=== PATIENT | male | born 1995 | race Caucasian/White ===

== ENCOUNTER 2018-06-08 10:05 | Emergency (ER) | payer OTHER ==
--- NOTE | 2018-06-08 10:34 | EDPHY ---
H & P Time Seen by Provider: 06/08/18 10:34 HPI/ROS: CHIEF COMPLAINT: Low back pain and left forearm pain HISTORY OF PRESENT ILLNESS: Patient is a 22-year-old male here with left forearm pain and low back pain after he fell off a roof this morning while working. He states he fell approximately 8 ft and landed on his left low back and left forearm. He did not hit his head any denies any neck pain or headache. Additionally denies any chest pain or trouble breathing. He was able to ambulate after the incident denies any leg weakness leg numbness, saddle paresthesias or incontinence of bladder or stool. She is not taking any medication and denies any drug or alcohol use currently. ROS As detailed in HPI Smoking Status: Never smoked Physical Exam: General: Alert and oriented. Nontoxic appearing. No acute distress HEENT: Pupils PERRLA. No oral lesions. Cardiopulmonary: Regular rate and rhythm. No lower extremity edema Chest: No chest wall deformity or signs of trauma. Lung sounds clear bilaterally with no increased work of breathing Abdomen: No abdominal tenderness. Bowel sounds in all 4 quadrants. No signs of trauma to the abdomen. Pelvis: Pelvis is stable with no crepitus or tenderness. Skin: [place] warm and dry. No lesions. Muscle skeletal: Moving all 4 extremities. Equal strength in upper extremities and lower extremities. Tenderness to the left distal radius and distal ulna. No open skin lesions or deformity. Neurovascular intact distal to the left wrist. Back: Tenderness diffusely to the low back Neuro: Alert and oriented in her cranial nerves grossly intact Constitutional: Initial Vital Signs Temperature (C) 36.7 C 06/08/18 10:23 Heart Rate 67 06/08/18 10:23 Respiratory Rate 16 06/08/18 10:23 Blood Pressure 139/71 H 06/08/18 10:23 O2 Sat (%) 94 06/08/18 10:23 O2 Delivery Mode Room Air Allergies/Adverse Reactions: No Known Allergies Allergy (Unverified 06/08/18 10:27) Home Medications: Medication Instructions Recorded Hydrocodone/APAP 5/325 [Griffin 1 tab PO Q6H #16 tab 06/08/18 5/325 (*)] Medical Decision Making - Diagnostics Imaging Results: Imaging Impressions Lumbar Spine CT 06/08/18 10:53 Impression: Nondisplaced lateral left sacral fracture. Results called to Louie Olsen at 12:20 PM. General information for patients regarding this examination can be found at [email or web address]. If you have questions or comments about this report, please contact me at (hospital) or [phone] (cell). Forearm X-Ray 06/08/18 10:54 Findings: There are fractures of the distal radius. Carpal bones and remainder of the hand are intact. There is soft tissue swelling of the fingers. Impression : Nothing acute identified. Impression: Distal radial fractures. 2. Left Wrist, 4 views including a navicular view History: Pain post trauma, 8 foot fall Findings: There is a transverse fracture through the distal radial epiphysis. A vertical fracture undercuts the dorsal lateral 15% of the distal radial articular surface and is discrepant by approximately 4.5 mm. There is a nondisplaced ulnar styloid process avulsion. The carpal bones are normally aligned. The navicular bone is intact. Impression: Complex distal radial fracture with an intra-articular component involving the dorsal lateral surface, but without dorsal angulation. 3. Left Forearm, 2 views History: Pain post 8 foot fall Findings: The distal radial and ulnar fractures are visualized. The more proximal radius and ulna are normal. The elbow joint is grossly normally aligned. Impression: Distal radial and ulnar fractures. Hand X-Ray 06/08/18 10:55 Findings: There are fractures of the distal radius. Carpal bones and remainder of the hand are intact. There is soft tissue swelling of the fingers. Impression : Nothing acute identified. Impression: Distal radial fractures. 2. Left Wrist, 4 views including a navicular view History: Pain post trauma, 8 foot fall Findings: There is a transverse fracture through the distal radial epiphysis. A vertical fracture undercuts the dorsal lateral 15% of the distal radial articular surface and is discrepant by approximately 4.5 mm. There is a nondisplaced ulnar styloid process avulsion. The carpal bones are normally aligned. The navicular bone is intact. Impression: Complex distal radial fracture with an intra-articular component involving the dorsal lateral surface, but without dorsal angulation. 3. Left Forearm, 2 views History: Pain post 8 foot fall Findings: The distal radial and ulnar fractures are visualized. The more proximal radius and ulna are normal. The elbow joint is grossly normally aligned. Impression: Distal radial and ulnar fractures. Wrist X-Ray 06/08/18 11:16 Findings: There are fractures of the distal radius. Carpal bones and remainder of the hand are intact. There is soft tissue swelling of the fingers. Impression : Nothing acute identified. Impression: Distal radial fractures. 2. Left Wrist, 4 views including a navicular view History: Pain post trauma, 8 foot fall Findings: There is a transverse fracture through the distal radial epiphysis. A vertical fracture undercuts the dorsal lateral 15% of the distal radial articular surface and is discrepant by approximately 4.5 mm. There is a nondisplaced ulnar styloid process avulsion. The carpal bones are normally aligned. The navicular bone is intact. Impression: Complex distal radial fracture with an intra-articular component involving the dorsal lateral surface, but without dorsal angulation. 3. Left Forearm, 2 views History: Pain post 8 foot fall Findings: The distal radial and ulnar fractures are visualized. The more proximal radius and ulna are normal. The elbow joint is grossly normally aligned. Impression: Distal radial and ulnar fractures. ED Course/Re-evaluation: 22-year-old male here with fall from 8 ft. GCS of 15. States he speaking in full sentences and appears comfortable. Has tenderness without deformity to the left wrist and is found to have distal radius and distal ulna fracture. He is ambulatory in the ER. CT scan of his lumbar spine shows nondisplaced left sacral fracture. I discussed the case with Dr. Wagner on-call for Neurosurgery who recommends with follow-up with Orthopedics though there is nothing to do emergently of them pain control unless he has any neurologic deficits. Patient is ambulatory and has no saddle paresthesias, leg weakness, incontinence. We did discuss indications for return to the ER. He was given orthopedic follow- up. Differential Diagnosis: Cauda equina, compartment syndrome, compression fracture, - Data Points Medications Given: Discontinued Medications Hydrocodone Bitart/Acetaminophen (Griffin 10/325) 1 tab PO EDNOW ONE Stop: 06/08/18 10:58 Last Admin: 06/08/18 11:04 Dose: 1 tab Departure - Departure Disposition: Home, Routine, Self-Care Clinical Impression: Distal radius fracture, left, Distal end of ulna fracture, closed, Sacral fracture, closed Condition: Good Instructions: Hydrocodone/Acetaminophen (By mouth), Wrist Fracture in Children (ED), Sacral Fracture (ED) Additional Instructions: He need follow-up with Orthopedics within the next 3-5 days. Please call the with [facility] Sunday for follow-up. Take pain medication as needed. Return to ER for trouble urinating, numbness or tingling in her legs, bladder or bowel incontinence. El necesita un seguimiento con el Ortopedico en los siguientes 3-5 judd. Por favor llame el para un seguimiento. [place] medicamento para el dolor. Regrese al Departamento de Emergencias si tiene dificultad al orinar, adormecimiento u hormigueo en las piernas, incontinencia de la vejiga o intestinos. Referrals: NONE *PRIMARY CARE P,. [Primary Care Provider] - As per Instructions Devyn Willett MD [Medical Doctor] - As per Instructions Prescriptions: Hydrocodone/APAP 5/325 [Griffin 5/325 (*)] 1 tab PO Q6H #16 tab Print Language: Upper Sorbian
[2018-06-08] MEDS ORDERED: HYDROCODONE/APAP 10/325 TAB PO ONE (10:57)
[2018-06-08 13:18] VITALS: BP 145/78
== END 2018-06-08 13:19 | disposition home or self-care (01) ==
PROC: 2W3FX1Z Immobilization of Left Hand using Splint (ICD-10-PCS; principal; 2018-06-08)
DX: S52.572A Other intraarticular fracture of lower end of left radius, initial encounter for closed fracture (principal); S52.615A Nondisplaced fracture of left ulna styloid process, initial encounter for closed fracture; S32.10XA Unspecified fracture of sacrum, initial encounter for closed fracture; W13.2XXA Fall from, out of or through roof, initial encounter; Y99.0 Civilian activity done for income or pay
CPT/HCPCS: A4565